=== PATIENT | female | born 1965 | race Hispanic/Latino ===

== ENCOUNTER 2021-06-26 18:34 | Emergency (ER) | payer OTHER ==
[~2021-06-26] VITALS: Ht 157.5 cm; Wt 80.3 kg
[2021-06-26] MEDS ORDERED: HYDR-3421 PO (19:24)
[2021-06-26 19:58] VITALS: BP 155/73
[2021-06-26] MEDS ORDERED: HYDROXYZINE 25 MG TABLET PO ONE (20:00)
== END 2021-06-26 19:59 | disposition home or self-care (01) ==
LOC: EDH 18:34
DX: L50.9 Urticaria, unspecified (principal); L40.0 Psoriasis vulgaris; E11.9 Type 2 diabetes mellitus without complications; Z98.890 Other specified postprocedural states; Z90.49 Acquired absence of other specified parts of digestive tract